=== PATIENT | male | born 1930 | race Caucasian/White ===

== ENCOUNTER 2017-04-21 04:53 | Inpatient (IN) | payer OTHER ==
[2017-03-29 09:30] VITALS: BMI 29.0
--- NOTE | 2017-03-29 10:00 | PAT Medication Instructions ---
Service Date Mar 29, 2017. Current Home Medication List Amlodipine (Norvasc), 5 MG PO QAM Aspirin (Aspirin Ec), 81 MG PO HS Hydrochlorothiazide (Hctz), 25 MG PO QAM Omeprazole (Prilosec), 20 MG PO BID Simvastatin (Zocor), 20 MG PO QPM Terazosin Hcl (Hytrin), 2 MG PO HS Vitamins C & E (Vitamin C), 400 MG PO QAM [Mirapex], 1 MG PO BID Medication Instructions For Your Scheduled Surgery - Hold the following medications the night before and the morning of: [Mirapex], 1 MG PO BID - Hold the following medications the morning of surgery: Hydrochlorothiazide (Hctz), 25 MG PO QAM Vitamins C & E (Vitamin C), 400 MG PO QAM - Take the following medications the morning of surgery with a sip of water: Amlodipine (Norvasc), 5 MG PO QAM Omeprazole (Prilosec), 20 MG PO BID - Take the following medications as scheduled the night before surgery: Aspirin (Aspirin Ec), 81 MG PO HS Omeprazole (Prilosec), 20 MG PO BID Simvastatin (Zocor), 20 MG PO QPM Terazosin Hcl (Hytrin), 2 MG PO HS If you have any questions please call us at [phone] or [phone] or [phone]
[2017-03-29 10:47] LABS: BASO % 0.3 %; BASO ABS # 0.02 K/uL (0-0.2); EOS % 1.8 %; EOS ABS # 0.12 K/uL (0-0.5); HEMATOCRIT 32.6 % (42-52); HEMOGLOBIN 11.2 g/dL (14.0-18.0); IG# 0.01 K/uL (0.00-0.02); LYMPH % 23.2 %; LYMPH ABS # 1.52 K/uL (1.2-3.4); MEAN CELL VOLUME 87.9 fL (80-100); MEAN CORPUSCULAR HEMOGLOBIN 30.2 pg (25-34); MEAN CORPUSCULAR HGB CONC 34.4 g/dl (32-36); MEAN PLATELET VOLUME 8.8 fL (7.4-10.4); MONO % 5.9 %; MONO ABS # 0.39 K/uL (0.11-0.59); NEUT % 68.6 %; PLATELET COUNT 192 K/uL (130-400); RED CELL DISTRIBUTION WIDTH CV 13.2 % (11.5-14.5); RED CELL DISTRIBUTION WIDTH SD 43.1 fL (36.4-46.3); WHITE BLOOD COUNT 6.56 K/uL (4.8-10.8)
[2017-03-29 10:53] LABS: BLOOD UREA NITROGEN 19 mg/dl (7-18); CALCIUM 8.7 mg/dl (8.5-10.1); CARBON DIOXIDE 29 mmol/L (21-32); CREATININE 1.07 mg/dl (0.60-1.40); GLUCOSE 98 mg/dl (70-99); SODIUM 132 mmol/L (136-145)
[2017-03-29 10:56] LABS: PTT PATIENT 25.9 SECONDS (21.0-31.0)
--- NOTE | 2017-04-14 18:11 | HISTORY & PHYSICAL EXAMINATION ---
DATE OF ADMISSION: 04/21/2017 CHIEF COMPLAINT: Right hip and leg pain. HISTORY OF PRESENT ILLNESS: This is an 86-year-old gentleman who is S/P from bilateral knee replacements in the past. The right one was done in March 2015, left one done in December 2008. He has done well from his knees. Over the past 6-7 months, he has developed markedly increased pain and discomfort in his right hip. He has gotten to the point where has had had to use a cane for the past 3 months to get around. He describes lateral hip pain, thigh pain radiating down to his knee. No fevers. Otherwise, he is pretty active but been less able to do activities due to his limiting hip and thigh pain. He would like to have his hip fixed. The patient did have a greater trochanteric bursa injection trying to manage this without any relief. He did have an intraarticular hip joint injection which helped him for a couple of days. PAST MEDICAL HISTORY: Significant for: 1. Hypertension. 2. Elevated cholesterol. 3. Arthritis. 4. Prostate cancer. 5. BPH. 6. Chronic anemia. PAST SURGICAL HISTORY: Include: 1. Right knee replacement done 03/11/2015. 2. Left knee replacement done 12/09/2008. 3. Cholecystectomy. ALLERGIES: None. CURRENT MEDICINES: 1. Omeprazole 20 mg twice a day. 2. Amlodipine 5 mg a day. 3. Hydrochlorothiazide 25 mg. 4. Tamsulosin 0.4 mg twice a day. 5. Simvastatin 40 mg half tablet a day. 6. Finasteride 5 mg a day. 7. Breo Ellipta inhaler every morning. SOCIAL HISTORY: An 86-year-old male. The patient is . He is from [place]. Ten drinks per week. Does not smoke. FAMILY HISTORY: Noncontributory. REVIEW OF SYSTEMS: Negative for diabetes, neurologic problem, vascular problems, bleeding disorders. No chest pain or shortness of breath. No history of DVT or PE. PHYSICAL EXAMINATION: GENERAL: This is a pleasant elderly male, looks to be in good health. HEENT: Benign. NECK: Supple. No lymphadenopathy. LUNGS: Clear to auscultation. HEART: Regular rate and rhythm. ABDOMEN: Soft, nontender, nondistended. EXTREMITIES: Grossly neurovascularly intact except as follows: Examination of the right hip and leg reveals the patient walks with a significant limp. He has pretty good hip motion but pain with hip motion. He can internally rotate to 10 degrees or so and external rotation to about 30. He has pain with this. No knee effusion. Negative straight leg raise. X-RAYS: X-ray of the right hip were reviewed. Shows progressive right hip arthritis that has gotten significantly worse over the past 6 months. He has loss of at least 50% of his joint space. MRI was also reviewed. Shows a significant joint effusion. He has bone marrow edema in the femoral head and significant arthritic change. 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 ASSESSMENT: An 86-year-old male status post bilateral knee replacement with a 6-month history of increasing right hip pain and discomfort with progressive hip arthritis. He has failed conservative treatment and is debilitated by this and would like to have his right hip replaced. It does appear his pain is coming from his hip joint. PLAN: We are going to take him to the operating room and do a right total hip replacement. The risks and benefits of the procedure were explained to the patient include but not limited to DVT, PE, , infection, neurological injury, vascular injury, bleeding problem, pain, limited range of motion, stiffness, failure to relieve his symptoms, incomplete relief of symptoms, need for further surgery in the future, fracture, leg length inequality, nerve palsy, dislocation, etc. The patient understands and desires to proceed. Informed consent was obtained. As far as discharge plans, he is planning to be discharged to home with his 's assistance and using the [facility] home health program. SERJIO
[~2017-04-21] VITALS: Ht 170.2 cm; Wt 84.4 kg
[2017-04-21] VITALS (11 sets, daily range): BP systolic 132–173; BP diastolic 66–73; PULSE 74–89; TEMP 36.3–36.9; O2SAT 97–100; Ht 170.2 cm; Wt 84.4 kg
[~2017-04-21 04:53] MED LIST: AMLO-110 PO; ASPI81TA28 PO; HYDR25TA4 PO; HYT/2 PO; MIRAPEX PO; PRLSR20 PO; SIMV20TA5 PO; VITACAP26 PO
[2017-04-21] MEDS ORDERED: LACTATED RINGER'S 1000ML IV SCH (06:00)
[2017-04-21] MEDS ORDERED: FAMOTIDINE 20 MG TAB PO SCH (06:00)
[2017-04-21] MEDS ORDERED: LACTATED RINGER'S 1000ML 1,000 ML IV SCH (06:00)
[2017-04-21] MEDS ORDERED: METOCLOPRAMIDE HCL 10 MG TAB PO SCH (06:00)
[2017-04-21] MEDS ORDERED: CEFAZOLIN 2000MG IV PUSH 15 ML IV SCH (06:00)
[2017-04-21] MEDS ORDERED: ACETAMINOPHEN 500 MG TAB PO SCH (06:00)
[2017-04-21] MEDS ORDERED: TRANEXAMIC ACID INJ 1,000 MG x 2 Bags IV SCH ×2 (06:00)
[2017-04-21] MEDS ORDERED: GABAPENTIN 300 MG CAP PO SCH (06:00)
[2017-04-21] MEDS ORDERED: BUPIVACAINE 0.5 % 5 MG/1 ML PF 10ML VIAL ONE (06:33)
[2017-04-21] MEDS ORDERED: BACITRACIN 50000 UNIT VIAL ONE (06:36)
[2017-04-21] MEDS ORDERED: BUPIVACAINE/EPINEPHRINE 0.5% MPF 1:200,000 30 ML VIAL ONE (06:36)
[2017-04-21] MEDS ORDERED: MIDAZOLAM HCL 1 MG/ML 2ML VIAL ONE ×2 (06:41→07:48)
[2017-04-21] MEDS ORDERED: FENTANYL CITRATE INJ 50 MCG/1 ML 2 ML VIAL ONE ×2 (06:41→08:03)
[2017-04-21] MEDS ORDERED: MoRPHine SULFATE PF 1 MG/ML 10 ML AMP/VIAL ONE (06:41)
[2017-04-21] MEDS ORDERED: HYDROmorphone INJ 2 MG/ML SYR/VIAL ONE (06:41)
--- NOTE | 2017-04-21 06:47 | History & Physical Bridge Note ---
H&P Re-Evaluation Bridge Note: I have examined the patient, reviewed the History & Physical and in the interval since the performance of the History & Physical I have noted the following changes of clinical significance: No changes noted
[2017-04-21] MEDS ORDERED: EpHEDrine SULFATE INJ 50 MG/ML AMP IV PRN (07:15)
[2017-04-21] MEDS ORDERED: ATROPINE SULFATE 0.1 MG/ML 5ML SYR IV PRN (07:15)
[2017-04-21] MEDS ORDERED: FENTANYL CITRATE INJ 50 MCG/1 ML 2 ML VIAL IV PRN (07:15)
[2017-04-21] MEDS ORDERED: ONDANSETRON INJ 2 MG/ML 2 ML VIAL IV PRN ×2 (07:15→08:30)
[2017-04-21] MEDS ORDERED: PROPOFOL IV EMULSION 10 MG/ML 20 ML VIAL IV ONE (08:06)
[2017-04-21] MEDS ORDERED: PHENYLEPHRINE HCL INJ 10 MG/ML VIAL ONE (08:07)
[2017-04-21] MEDS ORDERED: PHENYLEPHRINE 100MCG/ML 5ML SYR ONE (08:07)
[2017-04-21] MEDS ORDERED: EpHEDrine SULFATE 50MG/5ML SYR ONE (08:07)
--- NOTE | 2017-04-21 08:27 | [facility] Post Operative Brief Note ---
Immediate Operative Summary Operative Date Apr 21, 2017. Pre-Operative Diagnosis Progressive right hip arthritis Post-Operative Diagnosis Progressive right hip arthritis Procedure(s) Performed Right Total Hip Arthroplasty Uncemented Surgeon Dr Vasquez Professor Of Environmental Studies Surgeon(s) Lauri Weiss PA-C Estimated Blood Loss 200cc Findings Consistent with Post-Op Diagnosis Specimens As Per Surgeon A. Right Femoral Head Drains None Anesthesia Type Spinal MAC Complication(s) none Disposition Accompanied Pt To Recover: yes Disposition: Recovery Room / PACU
[2017-04-21] MEDS ORDERED: BISACODYL 10 MG SUPP PR PRN (08:30)
[2017-04-21] MEDS ORDERED: HYDROmorphone INJ 0.5 MG/0.5 ML SYR IV PRN (08:30)
[2017-04-21] MEDS ORDERED: METOCLOPRAMIDE HCL INJ 5 MG/ML 2 ML VIAL IV PRN (08:30)
[2017-04-21] MEDS ORDERED: ALUMINUM/MAGNESIUM/SIMETH (MAALOX MAX) 30 ML UDC PO PRN (08:30)
[2017-04-21] MEDS ORDERED: TAMSULOSIN HCL 0.4 MG CAP PO PRN (08:30)
[2017-04-21] MEDS ORDERED: ZOLPIDEM TARTRATE 5 MG TAB PO PRN (08:30)
[2017-04-21] MEDS ORDERED: SILVER SULFADIAZINE 1% CR 50 GM JAR EXT PRN (08:30)
[2017-04-21] MEDS ORDERED: MAGNESIUM HYDROXIDE SUSP 30 ML UDC PO PRN (08:30)
--- NOTE | 2017-04-21 08:48 | Anesthesiology Progress Note ---
Anesthesia Post Op Note Date & Time Apr 21, 2017 at 08:48 Vital Signs Pain Intensity: 0 Vital Signs Past 12 Hours Date Time Temp Pulse Resp B/P (MAP) Pulse Ox O2 Delivery O2 Flow Rate FiO2 04/21/17 08:41 127/55 04/21/17 08:37 79 16 97 04/21/17 08:37 80 16 04/21/17 08:36 124/54 04/21/17 08:32 81 16 96 04/21/17 08:32 81 16 04/21/17 08:31 117/54 04/21/17 08:27 80 16 117/66 97 04/21/17 08:27 80 16 04/21/17 08:27 36.5 80 16 117/66 97 Nasal Cannula 2 04/21/17 05:54 98 Room Air 04/21/17 05:44 36.6 76 20 173/73 98 Room Air Notes Mental Status: alert / awake / arousable, participated in evaluation Pt Amnestic to Procedure: Yes Nausea / Vomiting: adequately controlled Pain: adequately controlled Airway Patency, RR, SpO2: stable & adequate BP & HR: stable & adequate Hydration State: stable & adequate Neuraxial Anesthesia: was administered, sensory block is resolving Anesthetic Complications: no major complications apparent
[2017-04-21] MEDS: MULTIVITAMIN TAB PO SCH (09:00)
[2017-04-21] MEDS ORDERED: [UNRECOGNIZED DRUG - MIXTURE] PO SCH (09:00)
[2017-04-21] MEDS: PRAMIPEXOLE DIHYDROCHLORIDE 0.5 MG TAB PO SCH ×2 (09:00→20:45)
[2017-04-21] MEDS ORDERED: NON-FORMULARY MEDICATION (Omeprazole (Prilosec) 20 MG) PO SCH (09:00)
[2017-04-21] MEDS: DOCUSATE SODIUM 100 MG CAP PO SCH ×2 (09:00→20:45)
[2017-04-21] MEDS: PANTOprazole SOD 40 MG TAB PO SCH ×2 (09:00→20:45)
[2017-04-21] MEDS: HYDROCHLOROTHIAZIDE 25 MG TAB PO SCH (09:00)
--- NOTE | 2017-04-21 09:15 | DIAGNOSTIC IMAGING REPORT ---
SINGLE VIEW PELVIS; SINGLE VIEW RIGHT HIP CLINICAL HISTORY: Postoperative examination. FINDINGS: An AP portable view of the hips and pelvis with a crosstable lateral portable view of the right hip are obtained. A bipolar right hip arthroplasty is in near-anatomic alignment. At least 2 cortical lag screws transfix the acetabular cup. No acute fracture is identified. There are expected postoperative changes overlying the right hip including skin clips, subcutaneous gas and soft tissue swelling. IMPRESSION: Expected postoperative findings status post right hip arthroplasty. No acute fracture is seen. Electronically signed by: Milan Hicks M.D. 04/21/2017 9:14 AM Dictated Date/Time: 04/21/2017 9:11 AM
[2017-04-21] MEDS: D5W AND 1/2NSS + 20MEQ KCL 1,000 ML IV SCH ×2 (10:46→20:18)
[2017-04-21] MEDS: KETOROLAC TROMETHAMINE 15 MG/ML VIAL IV. SCH ×3 (10:48→22:19)
[2017-04-21] MEDS: FERROUS GLUCONATE 324 MG TAB PO SCH ×2 (12:52→17:51)
[2017-04-21] MEDS: ACETAMINOPHEN 500 MG TAB PO SCH ×2 (13:08→22:19)
--- NOTE | 2017-04-21 15:11 | PROGRESS NOTE ---
DATE: 04/21/2017 SUBJECTIVE: An 86-year-old gentleman postop from a right total hip replacement. He is doing well. Not having any pain yet. No chest pain or shortness of breath. Not feeling dizzy or lightheaded. OBJECTIVE: VITAL SIGNS: Temperature 36.3. Vital signs stable. GENERAL: Physical examination reveals a pleasant elderly male. He is lying in bed. He is awake, alert and oriented. Looks comfortable. LUNGS: Clear to auscultation. HEART: Regular rate and rhythm. ABDOMEN: Soft, nontender, and nondistended. EXTREMITIES: Grossly neurovascularly intact except as follows. Examination of the right hip reveals the leg lengths to be equal. His dressing is clean, dry and intact. Thigh is soft and supple. His hip is located. He is neurologically intact. X-RAYS: X-rays of the right hip from recovery room reviewed. It shows a right uncemented total hip arthroplasty. Components looked to be in good position. No signs of problems. ASSESSMENT: An 86-year-old gentleman postop from a right hip replacement, doing well. Pain is controlled. His hip is located. He is neurologically intact. PLAN: 1. DVT prophylaxis including thigh-high TEDs, SCDs, and aspirin twice a day. 2. PT/OT. Weightbear as tolerated. Right total hip protocol. 3. Pain control. Doing well with current pain regimen. We are going to be careful not to try and avoid narcotics as much as possible to avoid confusion issues. 4. IV antibiotics x24 hours. 5. Disposition: Plan to discharge to home with some home health once adequately recovered.
[2017-04-21] MEDS: CEFAZOLIN IV 2,000 MG in SYRINGE 0 ML IV SCH ×2 (15:58→23:49)
[2017-04-21] MEDS ORDERED: TRANEXAMIC ACID INJ 1,000 MG in SODIUM CHLORIDE 0.9% 100ML 100 ML IV SCH (16:00)
[2017-04-21] MEDS ORDERED: CEFAZOLIN IV 2,000 MG in DEXTROSE 5% 50ML 50 ML IV SCH (16:00)
--- NOTE | 2017-04-21 16:51 | OPERATIVE REPORT ---
DATE OF OPERATION: 04/21/2017 SURGEON: Ryan Vasquez MD MEMORIAL DESIGNER: CAR Jimenez PREOPERATIVE DIAGNOSIS: Right hip degenerative joint disease. POSTOPERATIVE DIAGNOSIS: Same. PROCEDURE PERFORMED: Right uncemented total hip arthroplasty. COMPLICATIONS: None. ESTIMATED BLOOD LOSS: 200 mL. FLUID REPLACEMENT: 1800 mL crystalloid fluid replacement. ANESTHESIA: Spinal. DRAINS: None. SPECIMENS: Right femoral head sent for pathology. OPERATIVE INDICATIONS: The patient is an 86-year-old fairly active gentleman, who has had about a 7-month history of markedly increased right hip pain and discomfort that has become very debilitating. He has had to use a cane to get around. X-rays show progressive hip arthritis for the past several months. He had an MRI, which suggested bone marrow edema in the femoral head as well and progressive arthritis. The patient failed all conservative care and elected to proceed with operative treatment. OPERATIVE FINDINGS: Operative findings revealed a moderate sized joint effusion. He did have pretty extensive grade 4 change of the femoral head and acetabulum. Not a lot of osteophyte formation. OPERATIVE IMPLANTS: Operative implants consisted of: 1. Biomet G7 size 54-mm acetabular shell. 2. A 6.5 cancellous acetabular screws, 1 at 35 mm in length and 1 at 30 mm in length. 3. An apex hole eliminator. 4. A highly cross-linked polyethylene liner with a 54 mm outer diameter and 36 mm inner diameter with a vegas placed inferior and posterior. 5. DePuy size 13.5 small stature AML femoral stem. 6. A +1.5/36 mm metal articular ball. OPERATIVE PROCEDURE: The patient was taken to the operating room, identified and placed on the operating room table in the supine position. All contact areas were appropriately padded. IV antibiotics were provided by anesthesia team. A spinal anesthetic had been implemented in the holding area. Hall catheter was placed in sterile fashion. The patient was then placed in the left lateral decubitus position. An axillary roll was placed. Stulberg hip positioner was used for positioning. The right hip and leg were then prepped and draped in the usual sterile fashion. A posterolateral approach to the right hip was then performed through a curvilinear incision centered over the greater trochanter. Sharp dissection was carried through subcutaneous tissues down to the level of the IT band and gluteal fascia. The IT band and gluteal fascia were then incised longitudinally in line with skin incision. The underlying greater trochanteric bursa was excised. The piriformis and external rotators were tagged and taken off the posterior aspect of the femur. A posterior capsulotomy was then performed leaving a large flap for later repair. It was internally rotated and dislocated. Femoral neck osteotomy cut was made with final cut about 8 mm above the lesser trochanter. Femoral head was removed and sent for pathology. The femur was retracted anteriorly. Attention was then drawn to the acetabulum. The acetabular labrum was excised. The pulvinar fat was excised. Sequential reaming of the acetabulum was then performed beginning with size 43 reamer and progressing up to 53. A 54-mm Biomet G7 acetabular shell was then placed in about 40 degrees of lateral opening and 15-20 degrees of anteversion. It was fixed with two 6.5 cancellous acetabular screws. A trial liner was placed. Attention was then drawn to the femur. The proximal femur was entered with a cookie cutter followed by canal finder and lateralizing reamer. Sequential reaming of the femur was then performed beginning with a size 9 and progressing up to 13. We got excellent chatter at a 13. I broached beginning with a size 10.5 small broach and progressing up to 13.5 small broach. We got good fit. Calcar reamer was used to smoothen off the calcar. I trialed the hip and it was pretty stable, but there was a bit tight with the +5 head in. We elected to use a +1.5. It was fully stable in full extension and external rotation, flexion to 90 degrees, and internal rotation to about [address] a vegas inferior and posterior to maximize stability in flexion. We elected to place these implants. All trial implants were removed. An apex hole eliminator was placed. Highly cross-linked polyethylene liner with vegas placed inferior and posterior was placed. A 13.5 small stature AML femoral stem was then placed. I did ream part way down the canal with a 13.5 reamer as it was pretty tight initially. A +1.5/36 mm metal articular ball was placed. Hip was relocated. It was found to be stable. Attention was then drawn toward closing. The wound was irrigated with copious amounts of pulsatile lavage solution. I did inject locally with 60 mL of 0.5% Marcaine with epinephrine. Posterior capsule and external rotators were then repaired through drill holes in the posterior trochanter with #2 Ti-Cron suture. The IT band and gluteal fascia were then closed with #1 PDS suture in running fashion. Subcutaneous tissue was then closed with #2 Dexon suture in a buried interrupted fashion. The skin was then closed with skin lynn. Leg was then cleaned and dried and a sterile dressing of Xeroform, 4 x 4's, ABD pad and foam tape was applied. The patient then transferred to the recovery room in stable condition. The patient tolerated the procedure well no complications. All needle and sponge counts were correct at the end of the operation. I attest to the content of the Intraoperative Record and any orders documented therein. Any exception s are noted below.
[2017-04-21] MEDS: SIMVASTATIN 20 MG TAB PO SCH (20:45)
[2017-04-21] MEDS: ASPIRIN 81 MG ECTAB PO SCH (20:45)
[2017-04-21] MEDS: SENNA 8.6 MG TAB PO SCH (20:45)
[2017-04-21] MEDS: TRAMADOL HCL 50 MG TAB PO PRN (23:53)
[2017-04-22] MEDS: KETOROLAC TROMETHAMINE 15 MG/ML VIAL IV. SCH ×4 (03:43→22:19)
[2017-04-22 03:45] VITALS: BP_SYST 136; BP_SYST 144; BP_DIAS 68; BP_DIAS 88; PULSE 103; PULSE 75; TEMP 36.7; TEMP 36.9; O2SAT 96; O2SAT 98
[2017-04-22] MEDS: D5W AND 1/2NSS + 20MEQ KCL 1,000 ML IV SCH (05:54)
[2017-04-22] MEDS: ACETAMINOPHEN 500 MG TAB PO SCH ×3 (05:54→22:20)
[2017-04-22 06:20] LABS: BASO % 0.1 %; BASO ABS # 0.01 K/uL (0-0.2); EOS % 0.2 %; EOS ABS # 0.02 K/uL (0-0.5); HEMATOCRIT 26.3 % (42-52); IG# 0.02 K/uL (0.00-0.02); LYMPH % 12.4 %; LYMPH ABS # 1.21 K/uL (1.2-3.4); MEAN CELL VOLUME 86.8 fL (80-100); MEAN CORPUSCULAR HEMOGLOBIN 29.7 pg (25-34); MEAN CORPUSCULAR HGB CONC 34.2 g/dl (32-36); MONO % 8.4 %; MONO ABS # 0.82 K/uL (0.11-0.59); NEUT % 78.7 %; NEUT ABS # 7.67 K/uL (1.4-6.5); PLATELET COUNT 159 K/uL (130-400); RED CELL DISTRIBUTION WIDTH CV 12.8 % (11.5-14.5); RED CELL DISTRIBUTION WIDTH SD 41.5 fL (36.4-46.3); WHITE BLOOD COUNT 9.75 K/uL (4.8-10.8)
[2017-04-22 06:41] LABS: CALCIUM 8.1 mg/dl (8.5-10.1); CREATININE 1.07 mg/dl (0.60-1.40); POTASSIUM 4.1 mmol/L (3.5-5.1)
[2017-04-22 07:35] VITALS: BP 166/67; PULSE 75; TEMP 36.8; O2SAT 98
--- NOTE | 2017-04-22 07:38 | PROGRESS NOTE ---
DATE: 04/22/2017 SUBJECTIVE: An 86-year-old gentleman postop day 1 from right hip replacement. He is doing well. Not much pain. No chest pain or shortness of breath. Not feeling dizzy or lightheaded. OBJECTIVE: VITAL SIGNS: Temperature 36.9. Vital signs stable. GENERAL: Reveals a healthy, pleasant elderly male. He is sitting up in bed and looks comfortable. He is awake, alert and oriented. EXTREMITIES: Examination of the right hip reveals leg lengths to be equal. Hip is located. He is neurologically intact. LABORATORY DATA: Hemoglobin is 9.0. Hematocrit 26.3. Electrolytes are stable. Sodium slightly low. ASSESSMENT: An 86-year-old gentleman postop day 1 from right hip replacement, doing pretty well. He is anemic without symptoms. Pain is controlled. He is neurologically intact. PLAN: 1. DVT prophylaxis including thigh-high TEDs, SCDs, and aspirin twice a day. 2. PT/OT. Weight bear as tolerated. Right total hip protocol. 3. Pain control, doing well with current pain regimen. 4. Disposition: Planning to discharge to home with some home health once adequately recovered.
[2017-04-22] MEDS: PRAMIPEXOLE DIHYDROCHLORIDE 0.5 MG TAB PO SCH ×2 (08:33→20:28)
[2017-04-22] MEDS: DOCUSATE SODIUM 100 MG CAP PO SCH ×2 (08:33→20:28)
[2017-04-22] MEDS: FERROUS GLUCONATE 324 MG TAB PO SCH ×3 (08:33→17:54)
[2017-04-22] MEDS: ASPIRIN 81 MG ECTAB PO SCH ×2 (08:33→20:28)
[2017-04-22] MEDS: AMLODIPINE BESYLATE 5 MG TAB PO SCH (08:33)
[2017-04-22] MEDS: MULTIVITAMIN TAB PO SCH (08:33)
[2017-04-22] MEDS: HYDROCHLOROTHIAZIDE 25 MG TAB PO SCH (08:33)
[2017-04-22] MEDS: PANTOprazole SOD 40 MG TAB PO SCH ×2 (08:33→20:28)
[2017-04-22] MEDS: TRAMADOL HCL 50 MG TAB PO PRN (13:15)
[2017-04-22 15:11] VITALS: BP 144/68; PULSE 75; O2SAT 98
[2017-04-22 15:31] VITALS: BP 153/72; PULSE 100; TEMP 37.7; O2SAT 96
[2017-04-22] MEDS: SIMVASTATIN 20 MG TAB PO SCH (20:28)
[2017-04-22] MEDS ORDERED: ASPEC81 PO (20:29)
[2017-04-22] MEDS ORDERED: ULT50X PO (20:29)
[2017-04-22] MEDS ORDERED: ACET-24 PO (20:29)
[2017-04-22] MEDS: SENNA 8.6 MG TAB PO SCH (20:29)
[2017-04-22] MEDS ORDERED: FRRG PO (20:29)
--- NOTE | 2017-04-22 20:31 | Discharge Instructions ---
Discharge Instructions Date of Service Apr 22, 2017. Admission Reason for Admission: Right Hip Degenerative Joint Disease Discharge Discharge Diagnosis / Problem: Right Hip Replacement Discharge Goals Goal(s): Decrease discomfort, Improve function, Increase independence, Improve disease control, Therapeutic intervention Activity Recommendations Activity Limitations: per Instructions/Follow-up section (Total Hip Precautons) Weightbearing Status: Right weightbearing . Instructions / Follow-Up Instructions / Follow-Up ACTIVITY RECOMMENDATIONS: Physical Therapy: * Aggressive physical therapy is not usually needed. You will learn to take care of yourself safely and walk. * Follow the "Hip Precautions Instructions." * In some cases, the social services director at the hospital will arrange to have a therapist come to your house for the first couple of weeks to help you learn these skills. * You need to practice on your own or with the help of a family member as needed. * When you learn these skills, most of the therapy can be done on your own. Home Exercise: * You were shown a series of exercises in the hospital. Do these exercises three to four times each day including the exercises you were shown in physical therapy. Walking: * Get up and walk several times each day. For the first four weeks, try not to stand or walk for more than one hour at a time. If you do stand or walk for more than one hour, you will not hurt anything, but your leg will likely swell. * As you feel comfortable, you may change from the walker or crutches to a cane and then to independent walking. MEDICATIONS: New Medicine: * You will likely be taking one or more of these medicines: 1. Tramadol - Take, as directed, when you need it, every four to six hours to control your pain. 2. Iron Sulfate - Take two times each day for the month after surgery to help you replace the blood lost during surgery. 3. Aspirin - Thins your blood to lessen the chance of forming a blood clot. * The most common side effects of pain medicine and iron are nausea and constipation. If nausea or constipation is too much of a problem or if you have any questions about your new medicines or doses, call [facility] at . We will try to help you manage these issues. VERY IMPORTANT TO READ AND REVIEW" Pain: * The immediate post-operative period after hip replacement surgery is often quite painful. * You are given a prescription for pain medicine. You should take it, as directed, when you need it, especially before physical therapy and before going to bed. Pain that interferes with sleep is very common and can last several months. * You will likely need pain medicine for the first two to four weeks. It will not stop all of the pain. The pain will lessen and as you feel better, you may change to milder pain medicine such as Tylenol. * The most common side effects of pain medicine are nausea and constipation, so don't take more than you need. SPECIAL CARE INSTRUCTIONS: TEDs/Elastic Stockings: * The white elastic stockings help limit swelling and prevent blood clots from forming in your legs. The more you wear them, the more they work. * Wear them for six weeks. Prevention of Infection: * Take antibiotics one hour before any dental cleaning, dental work, urological procedure, gastrointestinal procedure or any invasive surgery in order to prevent your new joint from getting infected. * You may get the antibiotics from the doctor performing the procedure or you may call our office at before and we will call in a prescription to the pharmacy of your choice. Things to Watch For: * Drainage from the incision site that occurs more than one week after your surgery. * Severely increased leg pain or swelling. * Increased redness at the incision site. * Fever above 102 degrees Fahrenheit. * Unusual chest pain or shortness of breath. * Unusual pain or burning with urination. Call [facility] at with any of the above problems or if you have any questions about your medicines or recovery. FOLLOW UP VISIT: Make an appointment to see your doctor for approximately two weeks after surgery for a progress check and staple removal by calling the office at . Current Hospital Diet Patient's current hospital diet: Regular Diet Discharge Diet Recommended Diet: Regular Diet Procedures Procedures Performed: Right Total Hip Arthroplasty Uncemented Pending Studies Studies pending at discharge: no Medical Emergencies . Who to Call and When: Medical Emergencies: If at any time you feel your situation is an emergency, please call [phone] immediately. . Non-Emergent Contact Non-Emergency issues call your: Surgeon . "Provider Documentation" section prepared by Ryan Vasquez. .
[2017-04-22 22:50] VITALS: BP 150/66; PULSE 110; TEMP 36.9; O2SAT 94
[2017-04-23] VITALS (22 sets, daily range): BP systolic 62–110; BP diastolic 32–67; PULSE 91–108; TEMP 36.9–37.2; O2SAT 92–100
[2017-04-23] MEDS: KETOROLAC TROMETHAMINE 15 MG/ML VIAL IV. SCH (05:31)
[2017-04-23] MEDS: ACETAMINOPHEN 500 MG TAB PO SCH ×3 (05:32→21:36)
[2017-04-23 05:43] LABS: HEMATOCRIT 26.8 % (42-52); HEMOGLOBIN 9.2 g/dL (14.0-18.0)
[2017-04-23 06:03] LABS: CREATININE 1.38 mg/dl (0.60-1.40)
[2017-04-23 06:04] LABS: CALCIUM 8.1 mg/dl (8.5-10.1); POTASSIUM 4.4 mmol/L (3.5-5.1)
--- NOTE | 2017-04-23 06:29 | PROGRESS NOTE ---
DATE: 04/23/2017 SUBJECTIVE: An 86-year-old gentleman postop day 2 from a right total hip replacement. He is doing pretty well. Pain is controlled. No chest pain or shortness of breath. Not feeling dizzy or lightheaded. OBJECTIVE: VITAL SIGNS: Temperature 36.8. Vital signs stable. GENERAL: Reveals a pleasant elderly male. He is lying in bed, looks pretty comfortable. EXTREMITIES: Examination of the right hip reveals leg lengths equal. His dressing is clean, dry and intact. Thigh is soft and supple. Some minimal drainage. He can dorsiflex and plantarflex his foot appropriately. LABORATORY DATA: Hemoglobin 9.2. Hematocrit 26.8. Electrolytes are stable. Sodium slightly improved. ASSESSMENT: An 86-year-old gentleman postop day 2 from a right hip replacement, doing pretty well. His hemoglobin is stable. Electrolytes are stable. His pain is controlled. Hip is located. He is neurologically intact. PLAN: 1. DVT prophylaxis including thigh-high TEDs, SCDs, and aspirin twice a day. 2. PT/OT. Weight bear as tolerated. Right total hip protocol. 3. Pain control, doing pretty well with current pain regimen. 4. Disposition. Plan to discharge to home with some home health later today.
[2017-04-23] MEDS: DOCUSATE SODIUM 100 MG CAP PO SCH ×2 (08:28→20:27)
[2017-04-23] MEDS: PANTOprazole SOD 40 MG TAB PO SCH ×2 (08:29→21:36)
[2017-04-23] MEDS: MULTIVITAMIN TAB PO SCH (08:29)
[2017-04-23] MEDS: HYDROCHLOROTHIAZIDE 25 MG TAB PO SCH (08:29)
[2017-04-23] MEDS: FERROUS GLUCONATE 324 MG TAB PO SCH ×3 (08:29→18:52)
[2017-04-23] MEDS: ASPIRIN 81 MG ECTAB PO SCH ×2 (08:30→21:34)
[2017-04-23] MEDS: AMLODIPINE BESYLATE 5 MG TAB PO SCH (08:30)
[2017-04-23] MEDS: PRAMIPEXOLE DIHYDROCHLORIDE 0.5 MG TAB PO SCH ×2 (08:30→21:36)
[2017-04-23] MEDS ORDERED: NURSING VERBAL MED ORDER ONE (10:15)
[2017-04-23] MEDS ORDERED: SODIUM CHLORIDE 0.9% 500ML 500 ML IV ONE (10:15)
--- NOTE | 2017-04-23 10:35 | Medical Consult ---
Consultation Date of Consultation: Apr 23, 2017. Attending Physician: Ryan Vasquez M.D. Reason for Consultation: Hypotension History of Present Illness 86 yo Male with PMH of HTN, Dyslipidemia, Prostate cancer, Esophageal reflux, right hip osteoarthritis just had right hip replacement surgery 2 days with no post-op complication after failing conservative management. Pt was found sleeping in his chair and hypotensive with BP 72/43. Pt received his BP HCTZ and Amlodipine meds this morning. Last BP recorded in chart was last night that was 150/66. [facility] When I saw pt, he was lying in bed comfortable with no distress. He said that he felt fine and did not have any dizziness. He received 750ml NS bolus and his BP was 97/60 after the NS bolus. Denies any chest pain, palpitation, dizziness, weakness, numbness and SOB. Past Medical/Surgical History HTN Dyslipidemia Prostate cancer Esophageal reflux S/P Right hip osteoarthritis Social History Smoking Status: Former Smoker Allergies Coded Allergies: No Known Allergies (Verified , 04/21/17) Current Inpatient Medications Current Inpatient Medications Medications (Trade) Dose Ordered Sig/Emerson Route Start Time Stop Time Status Last Admin Dose Admin Acetaminophen (Tylenol Tab) 1,000 mg Q8 PO 04/21/17 14:00 05/21/17 13:59 04/23/17 05:32 1,000 MG Magnesium Hydroxide (Milk Of Magnesia Susp) 30 ml Q6H PRN PO 04/21/17 08:30 05/21/17 08:29 Bisacodyl (Dulcolax Supp) 10 mg DAILY PRN MN 04/21/17 08:30 05/21/17 08:29 Senna (Senokot Tab) 17.2 mg HS PO 04/21/17 21:00 05/21/17 20:59 04/22/17 20:29 17.2 MG Docusate Sodium (coLACE CAP) 100 mg BID PO 04/21/17 09:00 05/21/17 08:59 04/23/17 08:28 100 MG Al Hydrox/Mg Hydrox/Simethicone (Maalox Max Susp) 15 ml Q4H PRN PO 04/21/17 08:30 05/21/17 08:29 Zolpidem Tartrate (Ambien Tab) 5 mg HSZ PRN PO 04/21/17 08:30 05/21/17 08:29 Multivitamins (Multivitamin Tab) 1 tab QAM PO 04/21/17 09:00 05/21/17 08:59 04/23/17 08:29 1 TAB Ondansetron HCl (Zofran Inj) 4 mg Q6H PRN IV 04/21/17 08:30 05/21/17 08:29 Metoclopramide HCl (Reglan Inj) 10 mg Q6H PRN IV 04/21/17 08:30 05/21/17 08:29 Ferrous Gluconate (Ferrous Gluconate Tab) 324 mg TIDM PO 04/21/17 12:30 05/21/17 12:29 04/23/17 08:29 324 MG Pantoprazole Sodium (Protonix Tab) 40 mg BID PO 04/21/17 09:00 05/21/17 08:59 04/23/17 08:29 40 MG Silver Sulfadiazine (Silvadene 1% Crm 50GM Jar) 1 appln BID PRN EXT 04/21/17 08:30 05/21/17 08:29 Tramadol HCl (Ultram Tab) 1 TABLET FOR PAIN RATING... Q4H PRN PO 04/21/17 08:30 05/21/17 08:29 04/22/17 13:15 100 MG Tamsulosin HCl (Flomax Cap) 0.4 mg QAM PRN PO 04/21/17 08:30 05/21/17 08:29 Aspirin (Ecotrin Tab) 81 mg BID PO 04/21/17 21:00 05/21/17 20:59 04/23/17 08:30 81 MG Amlodipine Besylate (Norvasc Tab) 5 mg QAM PO 04/22/17 09:00 05/22/17 08:59 Future Hold 04/23/17 08:30 5 MG Hydrochlorothiazide (Hydrochlorothiazide Tab) 25 mg QAM PO 04/21/17 09:00 05/21/17 08:59 Future Hold 04/23/17 08:29 25 MG Simvastatin (Zocor Tab) 20 mg QPM PO 04/21/17 21:00 05/21/17 20:59 04/22/17 20:28 20 MG Terazosin HCl (Hytrin Cap) 2 mg HS PO 04/21/17 21:00 05/21/17 20:59 04/22/17 20:28 2 MG Pramipexole Dihydrochloride (miraPEX TAB) 1 mg BID PO 04/21/17 09:00 05/21/17 08:59 04/23/17 08:30 1 MG Hydromorphone HCl (Dilaudid Inj) 0.5 mg Q1H PRN IV 04/21/17 08:30 05/05/17 08:29 Miscellaneous Information (Order Awaiting Action) 1 ea QS N/A 04/21/17 16:00 05/21/17 15:59 Sodium Chloride 500 ml @ 999 mls/hr Q31M ONCE IV 04/23/17 10:15 04/23/17 10:45 04/23/17 10:25 999 MLS/HR Review of Systems Constitutional: No fever, No chills Eyes: No eye pain, No discharge ENT: No nasal symptoms, No sore throat Respiratory: No cough, No sputum, No shortness of breath Cardiovascular: No chest pain, No palpitations Abdomen: No pain, No nausea, No vomiting Musculoskeletal: No calf pain Genitourinary - Male: No hematuria Neurologic: No memory loss, No weakness, No vertigo Psychiatric: No substance abuse Endocrine: No fatigue Hematologic / Lymphatic: No clotting problems Integumentary: No rash, No itch Physical Exam Date Time Temp Pulse Resp B/P (MAP) Pulse Ox O2 Delivery O2 Flow Rate FiO2 04/23/17 10:16 104 16 89/52 (64) 97 Nasal Cannula 2.0 04/23/17 10:09 97 74/43 (53) 99 2.0 04/23/17 10:02 102 81/44 (56) 99 Nasal Cannula 2.0 04/23/17 10:00 103 81/46 (58) 99 Nasal Cannula 2.0 04/23/17 09:59 96 77/42 (54) 98 Nasal Cannula 2.0 04/23/17 09:58 91 77/44 (55) 97 04/23/17 09:57 94 77/44 (55) 97 Nasal Cannula 2.0 04/23/17 09:57 72/43 (53) 04/23/17 09:55 95 62/32 (42) 95 2.0 04/23/17 09:52 72/43 (53) 04/23/17 08:00 Room Air 04/22/17 22:50 36.9 110 17 150/66 (94) 94 Room Air 04/22/17 20:00 Room Air 04/22/17 15:31 37.7 100 16 153/72 (99) 96 Room Air 04/22/17 15:11 75 98 General Appearance: WD/WN, no apparent distress Head: normocephalic, atraumatic Eyes: PERRL, EOMI ENT: hearing grossly normal Neck: no JVD, trachea midline Respiratory/Chest: normal breath sounds, no respiratory distress, no accessory muscle use Cardiovascular: regular rate, rhythm, no murmur Abdomen/GI: normal bowel sounds, non tender, soft Back: no CVA tenderness Extremities/Musculoskelatal: no calf tenderness Neurologic/Psych: no motor/sensory deficits, alert, oriented x 3, + pertinent finding (speech fluent) Skin: normal color, warm/dry Laboratory Results Last 24 Hours Test 04/23/17 05:24 Hemoglobin 9.2 g/dL Hematocrit 26.8 % Sodium Level 131 mmol/L Potassium Level 4.4 mmol/L Chloride Level 99 mmol/L Carbon Dioxide Level 24 mmol/L Anion Gap 8.0 mmol/L Blood Urea Nitrogen 30 mg/dl Creatinine 1.38 mg/dl Est Creatinine Clear Calc Drug Dose 40.6 ml/min Estimated GFR () 53.6 Estimated GFR (Non- 46.3 BUN/Creatinine Ratio 21.5 Random Glucose 88 mg/dl Calcium Level 8.1 mg/dl Assessment & Plan Right uncemented total hip arthroplasty S/p day [address] Vasquez No post op complication PT/OT Incentive spirometry Hypotension Received BP med this morning Received 750 ml NS bolus Hold HCTZ and Amlodipine Repeat BP 97/60 after bolus Continue monitor BP HTN BP low Hold BP meds DVT px as per ortho CODE STATUS FUL L CODE
[2017-04-23 14:39] LABS: HEMATOCRIT 27.9 % (42-52); HEMOGLOBIN 9.5 g/dL (14.0-18.0)
[2017-04-23] MEDS ORDERED: SODIUM CHLORIDE 0.9% 1000ML 1,000 ML IV SCH (16:00)
[2017-04-23] MEDS: SENNA 8.6 MG TAB PO SCH (20:27)
[2017-04-23] MEDS: SIMVASTATIN 20 MG TAB PO SCH (21:36)
[2017-04-24] MEDS: ACETAMINOPHEN 500 MG TAB PO SCH (05:37)
[2017-04-24 07:40] VITALS: BP 110/60; PULSE 102; TEMP 36.8; O2SAT 97
--- NOTE | 2017-04-24 07:49 | Anesthesiology Progress Note ---
Anesthesia Post Op Note Date & Time Apr 24, 2017 at 07:49 Vital Signs Pain Intensity: 0.0 Vital Signs Past 12 Hours Date Time Temp Pulse Resp B/P (MAP) Pulse Ox O2 Delivery O2 Flow Rate FiO2 04/23/17 23:20 Room Air 04/23/17 22:51 37.2 108 18 110/58 (75) 95 Room Air Notes Mental Status: alert / awake / arousable, participated in evaluation Pt Amnestic to Procedure: Yes Nausea / Vomiting: adequately controlled Pain: adequately controlled Airway Patency, RR, SpO2: stable & adequate BP & HR: stable & adequate Hydration State: stable & adequate Neuraxial Anesthesia: sensory block resolved Anesthetic Complications: no major complications apparent
[2017-04-24] MEDS: DOCUSATE SODIUM 100 MG CAP PO SCH (08:00)
[2017-04-24] MEDS: PANTOprazole SOD 40 MG TAB PO SCH (08:02)
[2017-04-24] MEDS: MULTIVITAMIN TAB PO SCH (08:02)
[2017-04-24] MEDS: FERROUS GLUCONATE 324 MG TAB PO SCH (08:02)
[2017-04-24] MEDS: ASPIRIN 81 MG ECTAB PO SCH (08:02)
[2017-04-24] MEDS: PRAMIPEXOLE DIHYDROCHLORIDE 0.5 MG TAB PO SCH (08:03)
[2017-04-24 08:57] VITALS: O2SAT 97
--- NOTE | 2017-04-24 08:59 | PROGRESS NOTE ---
DATE: 04/24/2017 SUBJECTIVE: An 86-year-old gentleman postop day 3 from a right total hip replacement. He is doing okay. Yesterday, he had a hypotensive episode and medicine services consulted. He was started on his blood pressure medicine and things seem to be better. He has no complaints today. Never had any chest pain or shortness of breath. He is not feeling dizzy or lightheaded. PHYSICAL EXAMINATION: GENERAL: Reveals a pleasant elderly male. He is sitting up in his bedside chair this morning. Looks comfortable. He is awake, alert and oriented. EXTREMITIES: Examination of the right hip reveals the dressing to be intact. Hip is located. He is neurologically intact. LABORATORY DATA: Hemoglobin 9.5 and hematocrit 27.9. Electrolytes have been stable. ASSESSMENT: An 86-year-old gentleman postop day 3 from right hip replacement with a hypotensive episode yesterday. Seems to be improved. We will hold his blood pressure medicine. Continue to encourage p.o. intake. PLAN: 1. DVT prophylaxis including thigh high TEDs, SCDs, and aspirin twice a day. 2. PT, OT. Weight bear as tolerated. Right total hip protocol. 3. Pain control, doing pretty well with current pain regimen. 4. Disposition: Plan to discharge to home with some home health if does okay in therapy this morning.
[2017-04-24 09:36] VITALS: BP 110/60; PULSE 102; TEMP 36.8; O2SAT 97
== END 2017-04-24 11:26 | disposition home health service (06) | DRG 470 ==
LOC: C.ACU 04:53 → C.3E 08:33 → ENRESERV 08:46
PROVIDERS: ADMIT Orthopaedic Surgery Sports Medicine; ATTEND Orthopaedic Surgery Sports Medicine
PROC: 0SRA00A Replacement of Right Hip Joint, Acetabular Surface with Polyethylene Synthetic Substitute, Uncemented, Open Approach (ICD-10-PCS; principal; 2017-04-21 07:00)
DX: M16.11 Unilateral primary osteoarthritis, right hip (principal); I10 Essential (primary) hypertension; I95.9 Hypotension, unspecified; E78.5 Hyperlipidemia, unspecified; K21.9 Gastro-esophageal reflux disease without esophagitis; N40.0 Benign prostatic hyperplasia without lower urinary tract symptoms; Z96.653 Presence of artificial knee joint, bilateral; Z90.49 Acquired absence of other specified parts of digestive tract; Z85.46 Personal history of malignant neoplasm of prostate